=== PATIENT | male | born 1980 | race Caucasian/White ===

== ENCOUNTER 2021-01-17 08:37 | Emergency (ER) | payer SELFPAY ==
--- OUTSIDE RECORDS SUMMARY | 2021-01-17 08:40 | XMS REPORT | Continuity of Care Document ---
:1980 Author Organization [facility] t Address [address] [place] [address] Care Team Providers Name Role Phone Unavailable Unavailable Unavailable Payers Payer Name Policy Type Policy Number Effective Date Expiration Date S ource Problems This patient has no known problems. Allergies, Adverse Reactions, Alerts Allergy Allergy Status Severity Reaction(s) Onset Inactive Treating Comm ents Source Name Type Date Date Clinician No Known DA Active U [facility] 06-02 [facility] s 00:00: d 00 [facility] Medications This patient has no known medications. Procedures This patient has no known procedures. Results Test Description Test Time Test Comments Results Result [facility] e Comments - CT ABD PELVIS 2020-06-02 W/O CONT 14:28:00 [place]: St: REG Name: TOM HUSSEIN [facility] Lisa : 1980 Age/S: 40/M [address] Unit: [id number] Loc: [place] [address] Phys: Joel Dawkins NP Acct: [id number] Dis Date: Status: REG ER PHONE #: [phone] Exam Date: 06/02/2020 1412 FAX #: [phone] Reason: right sided abdominal pain EXAMS: CPT CODE: [id number] CT ABD PELVIS W/O CONT 64255 EXAM: - CT ABD PELVIS W/O CONT LOCATION: C3 HISTORY: 40 years -old Male with right sided abdominal pain TECHNIQUE: Contrast - No IV contrast was given. No oral contrast was given Noncontrast phase - abdomen and pelvis including all of kidneys Reconstructions - coronal and sagittal planes This exam was performed according to our departmental dose-optimization program, which includes automated exposure control, adjustment of the mA and/or kV according to patient size and/or use of iterative reconstruction technique COMPARISON: None FINDINGS: Statements: Lack of intravenous contrast compromises evaluation of abdominopelvic organs and vasculature. Lack of oral contrast compromises evaluation of bowel. Thoracic: Included images of the lower chest demonstrate no abnormalities. Hepatobiliary: The liver is normal without focal lesion. The gallbladder is normal. No biliary dilation. Pancreas: Normal. Spleen: Normal. Adrenals: Normal. Genitourinary: Nonobstructive stones are identified in both kidneys measuring up to 4 mm. 2. 3 mm stones are identified in the proximal right ureter with moderate hydronephrosis. Evaluation of the bladder is limited, but no obvious bladder abnormality is present. Gastrointestinal: Focal diverticulitis involving the proximal aspect of the transverse colon. No adjacent fluid collections. The appendix is not visualized. PAGE 1 Signed Report (CONTINUED) [place]: St: REG Name: TOM HUSSEIN [facility] [place] : 1980 Age/S: 40/M [address] Unit: [id number] Loc: [place] [address] Phys: Joel Dawkins NP Acct: [id number] Dis Date: Status: REG ER PHONE #: [phone] Exam Date: 06/02/2020 1412 FAX #: [phone] Reason: right sided abdominal pain EXAMS: CPT CODE: [id number] CT ABD PELVIS W/O CONT 98254 <Continued> Vascular: The aorta is grossly normal in appearance. Lymphatics: No enlarged lymph nodes by CT size criteria. Bones/Soft Tissues: No acute osseous findings. No ventral hernias. Peritoneum/Other: No extraluminal air. No extraluminal fluid. IMPRESSION: 1. Focal uncomplicated diverticulitis involving the proximal transverse colon. No adjacent fluid collections. 2. 2 obstructive stones in the proximal right ureter with moderate hydronephrosis. 3. Nonobstructive stones in both kidneys measuring up to 4 minutes. at 1428 Reported and signed by: Merari CERVANTES, Nickolas CC: Technologist: JOSE LUIS STONE Trnscrd Dt/Tm: 06/02/2020 (9160) [email or web address] Orig Print D/T: S: 06/02/2020 (2012 PAGE 2 Signed Report URINALYSIS COMPLETE 2020-06-02 14:11:00 Test Item Value Reference Range Interpretation Comme nts UA COLOR (test code = COLU) Yellow Yellow UA APPEARANCE (test code = APPU) Clear Clear UA GLUCOSE DIPSTICK (test code = DGLUU) Negative Negative UA BILIRUBIN DIPSTICK (test code = BILU) Negative Negative UA KETONE DIPSTICK (test code = KETU) Negative mg/dL Negative UA SPECIFIC GRAVITY (test code = SGU) 1.017 <1.030 UA BLOOD DIPSTICK (test code = JEMIMA) 1+ Negative A UA PH DIPSTICK (test code = PERICO) 5.0 5.0-8.0 UA PROTEIN DIPSTICK (test code = PROU) NEGATIVE mg/dL Negative UA UROBILINOGEN DIPSTICK (test code = URO) Negative mg/dL Negative UA NITRITE DIPSTICK (test code = MALACHI) Negative Negative UA LEUKOCYTE ESTERASE DIPSTICK (test code = LEUU) NEGATIVE Nega tive UA WBC (test code = WBCU) 0-3 /HPF <4-5 UA RBC (test code = RBCU) 0-3 /HPF <4-5 UA BACTERIA (test code = BACU) None /HPF None-Rare UA SQUAMOUS CELLS (test code = SQU) 0-5 (RARE) /HPF 0-5 (RARE) UA MUCUS (test code = MUCU) Rare /LPF <Rare - US ABDOMEN [id number] 14:11:00 [place]: St: REG Name: TOM HUSSEIN [facility] Lisa : 1980 Age/S: 40/M [address] Unit#: [id number] Loc: [place] [address] Phys: Joel Dawkins NP Acct: [id number] Dis Date: Status: REG ER PHONE #: [phone] Exam Date: 06/02/2020 3822 FAX #: [phone] Reason: ruq pain EXAMS: CPT CODE: [id number] US ABDOMEN LTD 44579 EXAM: Ultrasound gallbladder INDICATION: ruq pain, LOCATION: [place] [address] COMPARISON: NoneTECHNIQUE: Real time ultrasonography was conducted at the right upper quadrant. Multiple static images were submitted for evaluation. DISCUSSION: The liver is normal in echogenicity . There is no masses or cysts. The liver size is 13.1 cm . Normal antegrade flow is noted. The gallbladder is normally distended. cm There are no gallstones. There is no pericholecystic fluid. The gallbladder wall is 1 mm, within normal limits The common bile duct measure 4 mm. There is no biliary ductal dilatation. . The pancreas is grossly unremarkable. The renal size is 10.3 x 5 x 5.4 cm. Right renal cortex measure up to 1.43 cm. There is presence of hydronephrosis seen. There is presence of 10 mm calcification reside within the proximal ureter. Aorta and inferior cava are unremarkable. No free fluid in the abdomen. IMPRESSION: 1. Mild to moderate right hydronephrosis secondary to 10 mm ureteral stone at the proximal aspect. PAGE 1 Signed Report (CONTINUED) [place]: St: REG Name: JACQUELIN HUSSEIN : 1980 Age/S: 40/M [address] Unit #: [id number] Loc: [place] [address] Phys: Joel Dawkins METAL MIXER Acct: [id number] Dis Date: Status: REG ER PHONE #: [phone] Exam Date: 06/02/2020 1356 FAX #: [phone] Reason: ruq pain EXAMS: CPT CODE: [id number] US ABDOMEN LTD 63816 <Continued> at 1411 Reported and signed by: Adama Chiang M.D. CC: Technologist: Odell Beverly RDDE Trnscrd Date/Time/By: 06/02/2020 (1411) : By: Malick PAGE 2 Signed Report [place]: St: REG Name: TOM HUSSEIN : 1980 Age/S: 40/M [address] Unit #: [id number] Loc: [place] [address] Phys: Joel Dawkins METAL MIXER Acct: [id number] Dis Date: Status: REG ER PHONE #: [phone] Exam Date: 06/02/2020 0859 FAX #: [phone] Reason: ruq pain EXAMS: CPT CODE: [id number] US ABDOMEN LTD 32915 <Continued> Orig Print D/T: S: 06/02/2020 (8122) PAGE 3 Signed ReportCOMPREHENSIVE METABOLIC [id number] 13:53:00 Test Item Value Reference Range Interpretation Comments SODIUM (test code = 138 mmol/L 137-145 N NA) POTASSIUM (test code 3.9 mmol/L 3.4-5.0 N = K) CHLORIDE (test code 103 mmol/L 98-107 N = CL) CARBON DIOXIDE (test 24 mmol/L 22-30 N code = CO2) GLUCOSE (test code = 96 mg/dL 74-106 N GLU) BLOOD UREA NITROGEN 16 mg/dL 9-20 N (test code = BUN) GLOMERULAR 72 >60 The estimated FILTRATION RATE glomerular f iltration (test code = GFR) rate is co mputed usingpatient ra ce, age (>18), sex, and serum creatinine. If anyof the needed data elements are mi ssing the Laboratory cannot compute an alva mation of the glomerul ar filtration rate . CREATININE (test 1.2 mg/dL 0.7-1.3 N code = CREAT) TOTAL PROTEIN (test 8.2 g/dL 6.3-8.2 N code = PROT) ALBUMIN (test code = 5.0 g/dL 3.5-5.0 N ALB) CALCIUM (test code = 9.7 mg/dL 8.4-10.2 N CA) BILIRUBIN TOTAL 0.8 mg/dL 0.2-1.3 N "A positive bias may (test code = BILT) occur for patients taking Eltrombo pag(a bone marrow sti mulant used to treat thrombocytopeni a andaplastic ane manjit)." BILIRUBIN CONJUGATED 0 mg/dL 0-0.3 N "A posi tive bias may (test code = BILCON) occur f or patients taking Eltrombo pag(a bone marrow sti mulant used to treat thrombocytopeni a andaplastic ane manjit)." C ONJUGATE D BILIRUBIN IS THE REPLACEMENT ASS AY FOR DIRECTBILIRUBIN . BILIRUBIN 0.5 mg/dL 0-1.1 N UNCONJUGATED (test code = BILUNC) SGOT/AST (test code 35 U/L 15-46 N = AST) SGPT/ALT (test code U/L 0-34 = ALT) ALKALINE PHOSPHATASE 117 U/L 38-126 N (test code = ALKP) [id number] 13:53:00 Test Item Value Reference Range Interpretation Comments LIPASE (test code = LIP) U/L 23-300 COMPREHENSIVE METABOLIC [id number] 13:53:00 Test Item Value Reference Range Interpretation Comments SODIUM (test code = 138 mmol/L 137-145 N NA) POTASSIUM (test code 3.9 mmol/L 3.4-5.0 N = K) CHLORIDE (test code 103 mmol/L 98-107 N = CL) CARBON DIOXIDE (test 24 mmol/L 22-30 N code = CO2) GLUCOSE (test code = 96 mg/dL 74-106 N GLU) BLOOD UREA NITROGEN 16 mg/dL 9-20 N (test code = BUN) GLOMERULAR 72 >60 The estimated FILTRATION RATE glomerular f iltration (test code = GFR) rate is co mputed usingpatient ra ce, age (>18), sex, and serum creatinine. If anyof the needed data elements are mi ssing the Laboratory cannot compute an alva mation of the glomerul ar filtration rate . CREATININE (test 1.2 mg/dL 0.7-1.3 N code = CREAT) TOTAL PROTEIN (test 8.2 g/dL 6.3-8.2 N code = PROT) ALBUMIN (test code = 5.0 g/dL 3.5-5.0 N ALB) CALCIUM (test code = 9.7 mg/dL 8.4-10.2 N CA) BILIRUBIN TOTAL 0.8 mg/dL 0.2-1.3 N "A positive bias may (test code = BILT) occur for patients taking Eltrombo pag(a bone marrow sti mulant used to treat thrombocytopeni a andaplastic ane manjit)." BILIRUBIN CONJUGATED 0 mg/dL 0-0.3 N "A posi tive bias may (test code = BILCON) occur f or patients taking Eltrombo pag(a bone marrow sti mulant used to treat thrombocytopeni a andaplastic ane manjit)." C ONJUGATE D BILIRUBIN IS THE REPLACEMENT ASS AY FOR DIRECTBILIRUBIN . BILIRUBIN 0.5 mg/dL 0-1.1 N UNCONJUGATED (test code = BILUNC) SGOT/AST (test code 35 U/L 15-46 N = AST) SGPT/ALT (test code 53 U/L 0-34 H = ALT) ALKALINE PHOSPHATASE 117 U/L 38-126 N (test code = ALKP) [id number] 13:53:00 Test Item Value Reference Range Interpretation Comments LIPASE (test code = LIP) 96 U/L 23-300 N CBC W/AUTO [id number] 13:41:00 Test Item Value Reference Range Interpretation Comments WHITE BLOOD CELL (test code = 14.5 x10 3/uL 5.0-12.0 H WBC) RED BLOOD CELL (test code = 4.81 x10 6/uL 4.70-6.10 N RBC) HEMOGLOBIN (test code = HGB) 15.0 g/dL 14.0-18.0 N HEMATOCRIT (test code = HCT) 44.1 % 37.0-49.0 N MEAN CELL VOLUME (test code = 92 fL 80-94 N MCV) MEAN CELL HGB (test code = 31.2 pg 27-31 H MCH) MEAN CELL HGB CONCENTRATION 34.0 g/dL 33-37 N (test code = MCHC) RED CELL DISTRIBUTION WIDTH 12.1 % 11.5-15.5 N (test code = RDW) PLATELET COUNT (test code = 370 x10 3/uL 130-400 N PLT) MEAN PLATELET VOLUME (test 9.7 fL 9.4-16.4 N code = MPV) NEUTROPHIL % (test code = NT%) 78.9 % 43-65 H IMMATURE GRANULOCYTE % (test 0.4 % 0.0-2.0 N code = IG%) LYMPHOCYTE % (test code = LY%) 11.1 % 20.5-45.5 L MONOCYTE % (test code = MO%) 7.5 % 5.5-11.7 N EOSINOPHIL % (test code = EO%) 1.7 % 0.9-2.9 N BASOPHIL % (test code = BA%) 0.4 % 0.2-1.0 N NUCLEATED RBC % (test code = 0.0 % 0-1.0 N NRBC%) NEUTROPHIL # (test code = NT#) 11.43 x10 3/uL 2.2-4.8 H IMMATURE GRANULOCYTE # (test 0.06 x10 3/uL 0-0.03 H code = IG#) LYMPHOCYTE # (test code = LY#) 1.61 x10 3/uL 1.3-2.9 N MONOCYTE # (test code = MO#) 1.08 x10 3/uL 0.3-0.8 H EOSINOPHIL # (test code = EO#) 0.25 x10 3/uL 0.0-0.2 H BASOPHIL # (test code = BA#) 0.06 x10 3/uL 0.0-0.1 N
--- NOTE | 2021-01-17 10:24 | RAD REPORT ---
EXAM DESCRIPTION: RAD - Elbow Left 3 View - 01/17/2021 10:18 am CLINICAL HISTORY: Left elbow pain status post trauma FINDINGS: No fracture or dislocation is seen. No bone or joint abnormality noted
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
[2021-01-17 21:11] VITALS: BP 142/101; O2SAT 100
[2021-01-17 21:27] VITALS: TEMP 98.6
== END 2021-01-17 11:11 | disposition home or self-care (01) ==
LOC: ER 08:37
DX: S53.442A Ulnar collateral ligament sprain of left elbow, initial encounter (principal); X50.0XXA Overexertion from strenuous movement or load, initial encounter; Y93.89 Activity, other specified; Y92.89 Other specified places as the place of occurrence of the external cause; Y99.8 Other external cause status
CPT/HCPCS: 99283

== ENCOUNTER 2021-10-27 17:52 | Observation (INO) | payer SELFPAY ==
--- OUTSIDE RECORDS SUMMARY | 2021-10-27 17:55 | XMS REPORT | Continuity of Care Document ---
:[address] [facility] t Address [address] [place] [address] Care Team Providers Name Role Phone SISSON_C Attending Clinician Unavailable Dale Attending Clinician [phone] Mehta_S Attending Clinician Unavailable Raju_P Attending Clinician Unavailable Physician, Primary or Family Admitting Clinician Unavailabl e SISSON_C Admitting Clinician Unavailable Mehta_S Admitting Clinician Unavailable Raju_P Admitting Clinician Unavailable Payers Payer Name Policy Type Policy Number Effective Date Expiration Date S ource Problems This patient has no known problems. Allergies, Adverse Reactions, Alerts Allergy Allergy Status Severity Reaction(s) Onset Inactive Treating Comm ents Source Name Type Date Date Clinician No Known DA Active U 2020-0 [facility]02 [facility] 00:00: d 00 [facility] No Known DA Active U 2020-0 [facility] All[facility]ie 06-02 [facility] 00:00: d 00 [facility] Medications This patient has no known medications. Procedures This patient has no known procedures. Encounters Start End Encounter Admission Attending Care Care Encounter Source Date/Time Date/Time Type Type Clinicians Facility Department ID 2020-10-18 Inpatient HCAKW XUAN [id number] [facility] 09:41:00 [id number] [facility] 2020-06-02 Inpatient HCAKW XUAN [id number] [facility] 12:56:00 [id number] [facility] 2021-10-25 2021-10-25 Outpatient SISSON_C [facility] 2021 [place] 10:58:00 10:58:00 [id number] 2021-10-25 2021-10-25 [facility] [id number] 00:00:00 00:00:00 Emily [id number] 2021-10-23 2021-10-23 Outpatient DAYO [facility] 2021 [place] 03:19:00 03:19:00 0105 [facility] 2021-06-13 2021-06-13 Outpatient Mehta_S [facility] U [id number]- [place] 10:39:00 10:39:00 [id number] 2021-06-12 2021-06-12 Outpatient Mehta_S [facility] HMU [id number]- [place] 10:22:00 10:22:00 [id number] [facility] 2020-01-23 2020-01-23 Outpatient Raju_P [facility]G [id number] [place] 05:14:00 05:14:00 0406 [facility] Results Test Description Test Time Test Comments Results Result [facility] e Comments - CT ABD PELVIS 2020-06-02 W/O CONT 14:28:00 [place]: St: REG Name: TOM HUSSEIN [facility] : 1980 Age/S: 40/M [address] Unit: [id number] Loc: [place] [address] Phys: Joel Dawkins NP Acct: [id number] Dis Date: Status: REG ER PHONE #: [phone] Exam Date: 06/02/2020 1412 FAX #: [phone] Reason: right sided abdominal pain EXAMS: CPT CODE: [id number] CT ABD PELVIS W/O CONT 74291 EXAM: - CT ABD PELVIS W/O CONT [...] not visualized. PAGE 1 Signed Report (CONTINUED) [place]: St: REG Name: TOM HUSSEIN [facility] : 1980 Age/S: 40/M [address] Unit: [id number] Loc: [place] [address] Phys: Joel Dawkins NP Acct: [id number] Dis Date: Status: REG ER PHONE #: [phone] Exam Date: 06/02/2020 1412 FAX #: [phone] Reason: right sided abdominal pain EXAMS: CPT CODE: [id number] CT ABD PELVIS W/O CONT 07178 <Continued> Vascular: The aorta is grossly normal [...] minutes. at 1428 Reported and signed by: Nickolas Gage MD CC: Technologist: JOSE LUIS STONE Trnscrd Dt/Tm: 06/02/2020 (2601) t.[email or web address] Orig Print D/T: S: 06/02/2020 (1672 PAGE 2 Signed Report URINALYSIS COMPLETE 2020-06-02 [...] MUCU) Rare /LPF <Rare - US ABDOMEN [id number] 14:11:00 [place]: St: REG Name: TOM HUSSEIN : 1980 Age/S: 40/M [address] Unit#: [id number] Loc: [place] [address] Phys: Joel Dawkins NP Acct: [id number] Dis Date: Status: REG ER PHONE #: [phone] Exam Date: 06/02/2020 5345 FAX #: [phone] Reason: ruq pain EXAMS: CPT CODE: [id number] ABDOMEN LTD 82585 EXAM: Ultrasound gallbladder INDICATION: ruq pain, LOCATION: [place] [address] COMPARISON: NoneTECHNIQUE: Real time ultrasonography was conducted [...] proximal aspect. PAGE 1 Signed Report (CONTINUED) [place]: St: REG Name: JACQUELIN HUSSEIN : 1980 Age/S: 40/M [address] Unit #: [id number] Loc: [place] [address] Phys: Joel Dawkins REGULATOR PIN INSERTER Acct: [id number] Dis Date: Status: REG ER PHONE #: [phone] Exam Date: 06/02/2020 3092 FAX #: [phone] Reason: ruq pain EXAMS: CPT CODE: [id number] US ABDOMEN LTD 32922 <Continued> at 1411 Reported and signed by: Adama Chiang M.D. CC: Technologist: Odell Beverly RDMS Trnscrd Date/Time/By: 06/02/2020 (1411) : By: Malick PAGE 2 Signed Report [place]: St: REG Name: TOM HUSSEIN : 1980 Age/S: 40/M [address] Unit #: [id number] Loc: [place] [address] Phys: Joel Dawkins REGULATOR PIN INSERTER Acct: [id number] Dis Date: Status: REG ER PHONE #: [phone] Exam Date: 06/02/2020 3391 FAX #: [phone] Reason: ruq pain EXAMS: CPT CODE: [id number] US ABDOMEN LTD 03013 <Continued> Orig Print D/T: S: 06/02/2020 (8244) PAGE 3 Signed ReportCOMPREHENSIVE METABOLIC [id number] 13:53:00 Test Item Value Reference Range Interpretation [...] U/L 38-126 N (test code = ALKP) [id number] 13:53:00 Test Item Value Reference Range Interpretation Comments LIPASE (test code = LIP) U/L 23-300 COMPREHENSIVE METABOLIC [id number] 13:53:00 Test Item Value Reference Range Interpretation [...] U/L 38-126 N (test code = ALKP) [id number] 13:53:00 Test Item Value Reference Range Interpretation Comments LIPASE (test code = LIP) 96 U/L 23-300 N CBC W/AUTO [id number] 13:41:00 Test Item Value Reference Range Interpretation [...]
[2021-10-27 18:40] LABS: Absolute Lymphocytes (CBC) 2.4 K/uL (0.7-4.9); Hematocrit 43.6 % (39.6-49.0); Lymphocytes % 26.9 % (15.3-44.8); MPV 7.7 fL (7.6-11.3); Protime INR 0.95; RBC Red Blood Cell Count 4.77 M/uL (4.33-5.43)
[2021-10-27 19:01] LABS: ALT/SGPT 87 U/L (12-78); AST/SGOT 38 U/L (15-37); Albumin 3.7 g/dL (3.4-5.0); Alkaline Phosphatase 69 U/L (45-117); BUN Blood Urea Nitrogen 15 mg/dL (7-18); Bicarbonate 23 mmol/L (21-32); Bilirubin Direct < 0.1 mg/dL (0-0.2); Bilirubin Total 0.2 mg/dL (0.2-1.0); Glucose Level 95 mg/dL (74-106); Magnesium 2.3 mg/dL (1.8-2.4); NT PRO-BNP 63 pg/mL (<125); Potassium 4.3 mmol/L (3.5-5.1); Protein, Total 7.5 g/dL (6.4-8.2); Sodium Level 138 mmol/L (136-145); Troponin (Emerg Dept Use Only) < 0.02 ng/mL (0.0-0.045)
--- NOTE | 2021-10-27 19:55 | ER ---
Nurse's Notes [facility] Name: Lobo Valerio Age: 41 yrs Sex: Male : 1980 Arrival Date: 10/27/2021 Time: 17:52 Bed 5 Private MD: Diagnosis: Chest pain, unspecified Presentation: 10/27 18:07 Chief complaint: Patient states: Squeezing and pulling chest pain that started 2-3 ww hours prior to arrival. Took 2 nitros. Recently discharged for Afib. Coronavirus screen: Vaccine status: Patient reports being unvaccinated. Client denies travel out of the [place] in the last 14 days. Ebola Screen: Patient negative for fever greater than or equal to 101.5 degrees Fahrenheit, and additional compatible Ebola Virus Disease symptoms Patient denies exposure to infectious person. Initial Sepsis Screen: Does the patient meet any 2 criteria? No. Patient's initial sepsis screen is negative. Does the patient have a suspected source of infection? No. Patient's initial sepsis screen is negative. Risk Assessment: Do you want to hurt yourself or someone else? Patient reports no desire to harm self or others. Onset of symptoms was October 27, 2021. 18:07 Method Of Arrival: Ambulatory ww 18:07 Acuity: NAOMI 3 ww Triage Assessment: 18:09 General: Appears in no apparent distress. Behavior is calm, cooperative, appropriate ww for age. Pain: Complains of pain in left breast. Pain: Pain radiates to left arm. EENT: No deficits noted. No signs and/or symptoms were reported regarding the EENT system. Neuro: No deficits noted. Level of Consciousness is awake, alert, obeys commands, Oriented to person, place, time, situation. Cardiovascular: Reports chest pain, Rhythm is regular Chest pain is described as diffuse, quality is squeezing, radiates to left arm(s). Respiratory: No deficits noted. Reports shortness of breath Airway is patent Respiratory effort is even, unlabored, Respiratory pattern is regular, symmetrical. GI: No deficits noted. No signs and/or symptoms were reported involving the gastrointestinal system. GI: Reports diarrhea. : No deficits noted. No signs and/or symptoms were reported regarding the genitourinary system. Derm: No deficits noted. No signs and/or symptoms reported regarding the dermatologic system. Musculoskeletal: No deficits noted. Historical: - Allergies: 18:09 No Known Allergies; ww - Home Meds: 18:09 clonazepam 0.5 mg Oral tab 1 tab 2 times per day [Active]; lisinopril 20 mg Oral tab 1 ww tab once daily [Active]; Toprol XL 100 mg Oral Tb24 1 tab once daily [Active]; atorvastatin 20 mg oral tab 1 tab once daily [Active]; - PMHx: 18:09 Anxiety; ADD/ADHD; ww - Immunization history:: Client reports having NOT received the Covid vaccine. Flu vaccine is not up to date. - Social history:: Smoking status: Patient denies any tobacco usage or history of. Screenin:06 Abuse screen: Denies threats or abuse. Denies injuries from another. Nutritional ww screening: No deficits noted. Tuberculosis screening: No symptoms or risk factors identified. Fall Risk None identified. Assessment: 19:30 General:. General: Appears in no apparent distress. Pain:. Pain: Complains of pain in mk chest Pain does not radiate. Pain currently is 5 out of 10 on a pain scale. Quality of pain is described as aching, Pain began gradually, 1 week ago Is continuous, intermittent. Neuro: Level of Consciousness is awake, alert, obeys commands, Oriented to person, place, time, situation. Cardiovascular: Heart tones S1 S2 present Murmur absent Capillary refill < 3 seconds fingers toes JVD is absent Patient's skin is warm and dry. Pulses are 2+ in right radial artery, right dorsalis pedis artery, left radial artery and left dorsalis pedis artery Rhythm is atrial fibrillation. Respiratory: Reports shortness of breath Airway is patent Trachea midline Respiratory effort is even, unlabored, Respiratory pattern is regular, symmetrical, Breath sounds are clear. GI: Abdomen is flat, non-distended, Abd is soft and non tender. : Urine is clear. Derm: Skin is intact, is healthy with good turgor, Skin is dry, Skin is pink, warm \T\ dry. Skin temperature is warm. Musculoskeletal: Circulation, motion, and sensation intact. Capillary refill < 3 seconds, fingers. toes. Range of motion: intact in all extremities. 20:30 Reassessment: Patient appears in no apparent distress at this time. Patient and/or family updated on plan of care and expected duration. Pain level reassessed. Patient is alert, oriented x 3, equal unlabored respirations, skin warm/dry/pink. Patient states feeling better. 21:30 Reassessment: Patient appears in no apparent distress at this time. Patient and/or family updated on plan of care and expected duration. Pain level reassessed. Patient is alert, oriented x 3, equal unlabored respirations, skin warm/dry/pink. 22:30 Reassessment: Patient appears in no apparent distress at this time. No changes from previously documented assessment. Patient and/or family updated on plan of care and expected duration. Pain level reassessed. Patient is alert, oriented x 3, equal unlabored respirations, skin warm/dry/pink. Vital Signs: 18:07 BP 131 / 81; Pulse 90; Resp 18; Temp 96.7; Pulse Ox 100% on R/A; Weight 96.16 kg; ww Height 5 ft. 10 in. (177.80 cm); Pain 6/10; 19:30 BP 123 / 78; Pulse 90; Resp 18; Pulse Ox 98% ; mk 20:30 BP 119 / 90; Pulse 90; Resp 18; Pulse Ox 98% on R/A; mk 21:30 BP 94 / 54; Pulse 90; Resp 18; Pulse Ox 98% on R/A; mk 22:36 BP 100 / 71; Pulse 85; Resp 18; Pulse Ox 95% on R/A; mk 18:07 Body Mass Index 30.42 (96.16 kg, 177.80 cm) Sharon Coma Score: 19:30 Eye Response: spontaneous(4). Verbal Response: oriented(5). Motor Response: obeys mk commands(6). Total: 15. 20:30 Eye Response: spontaneous(4). Verbal Response: oriented(5). Motor Response: obeys mk commands(6). Total: 15. 21:30 Eye Response: spontaneous(4). Verbal Response: oriented(5). Motor Response: obeys mk commands(6). Total: 15. 22:36 Eye Response: spontaneous(4). Verbal Response: oriented(5). Motor Response: obeys mk commands(6). Total: 15. ED Course: 17:52 Patient arrived in ED. am2 18:06 EKG done, by ED staff. ww 18:09 Triage completed. ww 18:09 Arm band placed on left wrist. ww 19:11 Dao Caruso NP is PHCP. pm1 19:22 Cliff Robert MD is Attending Physician. pm1 19:24 Mariia Rodrigues, RUBIO is Primary Nurse. mk 19:25 Magnesium Sent. mk 19:25 LFT's Sent. mk 19:25 CBC with Diff Sent. mk 19:25 Basic Metabolic Panel Sent. mk 19:30 Flushed left forearm. Patient maintains SpO2 saturation greater than 95% on room air. mk 19:30 Patient has correct armband on for positive identification. Allergy band placed. Fall mk risk band placed. Call light in reach. Side rails up X 1. 19:34 XRAY Chest (1 view) In Process Unspecified. EDMS 19:54 Garett Gusman MD is Hospitalizing Provider. pm1 20:34 SARS-COV-2 RT PCR Sent. cs9 22:30 Patient admitted, IV remains in place. mk 22:36 D-Dimer Sent. 10/28 02:10 No provider procedures requiring assistance completed. 02:12 threat monitoring analyst on. Pulse ox on. NIBP on. mk 07:28 Primary Nurse role handed off by Mariia Rodrigues RN bd 07:30 Alisha Castellanos RN is Primary Nurse. vg1 Administered Medications: 10/27 20:23 Drug: morphine 4 mg Route: IVP; Site: left antecubital; sm5 20:23 Drug: Zofran (Ondansetron) 4 mg Route: IVP; Site: left antecubital; sm5 20:23 Drug: Lovenox (enoxaparin) 1 mg/kg Route: Sub-Q; Site: right upper abdomen; sm5 20:24 Drug: Aspirin 325 mg Route: PO; sm5 Outcome: 19:54 Decision to Hospitalize by Provider. pm1 22:30 Instructed on the need for admit. 10/28 02:12 Admitted to ER Hold. Please see [facility] for further documentation. Condition: stable 10:56 Admitted to Tele accompanied by tech, room 206, with chart, Report called to Joelle BERGERON vg1 10:56 Condition: good 10:56 Instructed on the need for admit. 10:57 Patient left the ED. vg1 Signatures: Dispatcher [employer] EDMS DirJovana almeida Patrick, [employer]ITION[employer]S [employer] pm1 Anat Kendall am2 Alisha Castellanos, RN RN vg1 Irma French cs9 Ilana Ceballos RN RN sm5 Rossi Stoner, RN Mariia Harvey, RUBIO RN mk Corrections: (The following items were deleted from the chart) 10/27 20:30 20:23 CORONAVIRUS+MR.MARIO.BECKAZ drawn and sent. [facility] 22:35 20:30 Reassessment: Patient appears in no apparent distress at this time. No changes mk from previously documented assessment. Patient and/or family updated on plan of care and expected duration. Pain level reassessed. Patient is alert, oriented x 3, equal unlabored respirations, skin warm/dry/pink. mk
--- NOTE | 2021-10-27 19:55 | EDPHYS ---
Physician Documentation [facility] Name: Lobo Valerio Age: 41 yrs Sex: Male : 1980 Arrival Date: 10/27/2021 Time: 17:52 Bed 5 Private MD: ED Physician Cliff Robert HPI: 10/27 19:37 This 41 yrs old Male presents to ER via Ambulatory with complaints of Chest Pain. pm1 19:37 The patient or guardian reports chest pain that is located primarily in the anterior pm1 aspect of left upper chest. The pain radiates to the left arm. 19:37 Associated signs and symptoms: Pertinent positives: diaphoresis, Pertinent negatives: pm1 abdominal pain, dizziness, headache, nausea, shortness of breath, vomiting. The chest pain is described as a pressure, sharp. Duration: The patient or guardian reports a single episode, that is still ongoing. Modifying factors: The symptoms are alleviated by nothing. the symptoms are aggravated by nothing. Severity of pain: in the emergency department the pain is a 2 / 10. The patient has been recently seen by a physician: with similar presenting complaints, Patient was diagnosed with new onset atrial fibrillation last Thursday. Was hospitalized at [facility] and discharged home to follow up with cardiology. Patient was prescribed Eliquis but did not fill it due to the cost and was instructed by PCP to follow up with cardiology prior to starting the medication, Patient presents today with chest pain onset 2-3 hours prior to arrival in the left chest radiating to left arm. Patient took two nitros prior to arrival without any improvement in his pain. Patient reports intermittent chest pain since discharge from [place] and he has been taking nitro every day without any improvement. Historical: - Allergies: 18:09 No Known Allergies; ww - Home Meds: 18:09 clonazepam 0.5 mg Oral tab 1 tab 2 times per day [Active]; lisinopril 20 mg Oral tab 1 ww tab once daily [Active]; Toprol XL 100 mg Oral Tb24 1 tab once daily [Active]; atorvastatin 20 mg oral tab 1 tab once daily [Active]; - PMHx: 18:09 Anxiety; ADD/ADHD; ww - Immunization history:: Client reports having NOT received the Covid vaccine. Flu vaccine is not up to date. - Social history:: Smoking status: Patient denies any tobacco usage or history of. ROS: 19:37 Constitutional: Negative for fever, chills, and weight loss. pm1 19:37 Respiratory: Negative for shortness of breath, cough, wheezing, and pleuritic chest pain, Abdomen/GI: Negative for abdominal pain, nausea, vomiting, diarrhea, and constipation, MS/Extremity: Negative for injury and deformity, Skin: Negative for injury, rash, and discoloration, Neuro: Negative for headache, weakness, numbness, tingling, and seizure. 19:37 Cardiovascular: Positive for chest pain, Negative for edema, palpitations. 19:37 All other systems are negative. Exam: 19:37 Constitutional: This is a well developed, well nourished patient who is awake, alert, pm1 and in no acute distress. Head/Face: Normocephalic, atraumatic. Chest/axilla: Normal chest wall appearance and motion. Nontender with no deformity. No lesions are appreciated. 19:37 Back: No spinal tenderness. No costovertebral tenderness. Full range of motion. Skin: Warm, dry with normal turgor. Normal color with no rashes, no lesions, and no evidence of cellulitis. MS/ Extremity: Pulses equal, no cyanosis. Neurovascular intact. Full, normal range of motion. 19:37 Cardiovascular: Rate: normal, Rhythm: regular, Pulses: no pulse deficits are appreciated, Heart sounds: normal, Edema: is not appreciated. 19:37 Respiratory: Exam negative for acute changes, respiratory distress, shortness of breath. 19:37 Abdomen/GI: Exam negative for acute changes, Inspection: abdomen appears normal, Palpation: abdomen is soft and non-tender, in all quadrants. 19:37 Neuro: Exam negative for acute changes, Orientation: is normal, Mentation: is normal, Motor: is normal, moves all fours. Vital Signs: 18:07 BP 131 / 81; Pulse 90; Resp 18; Temp 96.7; Pulse Ox 100% on R/A; Weight 96.16 kg; ww Height 5 ft. 10 in. (177.80 cm); Pain 6/10; 19:30 BP 123 / 78; Pulse 90; Resp 18; Pulse Ox 98% ; mk 20:30 BP 119 / 90; Pulse 90; Resp 18; Pulse Ox 98% on R/A; mk 21:30 BP 94 / 54; Pulse 90; Resp 18; Pulse Ox 98% on R/A; mk 22:36 BP 100 / 71; Pulse 85; Resp 18; Pulse Ox 95% on R/A; mk 18:07 Body Mass Index 30.42 (96.16 kg, 177.80 cm) Sharon Coma Score: 19:30 Eye Response: spontaneous(4). Verbal Response: oriented(5). Motor Response: obeys mk commands(6). Total: 15. 20:30 Eye Response: spontaneous(4). Verbal Response: oriented(5). Motor Response: obeys mk commands(6). Total: 15. 21:30 Eye Response: spontaneous(4). Verbal Response: oriented(5). Motor Response: obeys mk commands(6). Total: 15. 22:36 Eye Response: spontaneous(4). Verbal Response: oriented(5). Motor Response: obeys mk commands(6). Total: 15. MDM: 19:11 Patient medically screened. pm1 19:37 Data reviewed: vital signs. Data interpreted: Pulse oximetry: on room air is 100 %. pm1 Interpretation: normal. 19:39 Counseling: I had a detailed discussion with the patient and/or guardian regarding: the pm1 historical points, exam findings, and any diagnostic results supporting the discharge/admit diagnosis, lab results, radiology results, the need for further work-up and treatment in the hospital. 19:54 Physician consultation: Deepak Hoang regarding admission, patient's condition, and will pm1 see patient in ED. 10/27 18:16 Order name: Basic Metabolic Panel ww 10/27 18:16 Order name: CBC with Diff ww 10/27 18:16 Order name: LFT's ww 10/27 18:16 Order name: Magnesium ww 10/27 18:16 Order name: NT PRO-BNP; Complete Time: 19:21 ww 10/27 18:16 Order name: PT-INR; Complete Time: 19:21 ww 10/27 18:16 Order name: Troponin (emerg Dept Use Only); Complete Time: 19:21 ww 10/27 18:16 Order name: Basic Metabolic Panel; Complete Time: 19:21 EDAR 10/27 18:16 Order name: CBC with Automated Diff; Complete Time: 19:21 EDAR 10/27 18:16 Order name: Liver (Hepatic) Function; Complete Time: 19:21 EDMS 10/27 18:16 Order name: Magnesium; Complete Time: 19:21 EDMS 10/27 19:34 Order name: D-Dimer pm1 10/27 19:35 Order name: D-Dimer; Complete Time: 20:35 EDMS 10/27 18:16 Order name: XRAY Chest (1 view); Complete Time: 20:15 ww 10/27 18:16 Order name: EKG; Complete Time: 18:17 ww 10/27 18:16 Order name: Cardiac monitoring; Complete Time: 19:25 ww 10/27 20:31 Order name: SARS-COV-2 RT PCR; Complete Time: 21:16 EDMS 10/27 23:44 Order name: Troponin I; Complete Time: 23:52 EDMS 10/28 06:23 Order name: CBC with Automated Diff EDMS 10/28 07:00 Order name: Comprehensive Metabolic Panel EDMS 10/28 07:00 Order name: Troponin I EDMS 10/28 07:00 Order name: Lipid Profile EDMS 10/28 07:00 Order name: T4 Free EDMS 10/28 07:00 Order name: Magnesium EDMS 10/28 07:00 Order name: Thyroid Stimulating Hormone EDMS 10/27 18:16 Order name: EKG - Nurse/Tech; Complete Time: 18:23 ww 10/27 18:16 Order name: IV Saline Lock; Complete Time: 18:23 ww 10/27 18:16 Order name: Labs collected and sent; Complete Time: 18:23 ww 10/27 18:16 Order name: O2 Per Protocol; Complete Time: 19:25 ww 10/27 18:16 Order name: O2 Sat Monitoring; Complete Time: 19:25 ww Administered Medications: 20:23 Drug: morphine 4 mg Route: IVP; Site: left antecubital; sm5 20:23 Drug: Zofran (Ondansetron) 4 mg Route: IVP; Site: left antecubital; sm5 20:23 Drug: Lovenox (enoxaparin) 1 mg/kg Route: Sub-Q; Site: right upper abdomen; sm5 20:24 Drug: Aspirin 325 mg Route: PO; sm5 Disposition Summary: 10/27/21 19:54 Hospitalization Ordered Hospitalization Status: Observation pm1 Provider: Garett Gusman pm1 Condition: Stable pm1 Problem: new pm1 Symptoms: have improved pm1 Bed/Room Type: Standard pm1 Location: Telemetry/MedSurg (observation)(10/28/21 09:42) bd Room Assignment: 206(10/28/21 09:42) bd Diagnosis - Chest pain, unspecified pm1 Forms: - Medication Reconciliation Form pm1 - SBAR form pm1 Addendum: 10/29/2021 12:17 Co-signature as Attending Physician, Cliff Robert MD I agree with the assessment and c hobbs plan of care. Signatures: Dispatcher [employer] EDMS Jovana Deleon Corey, MD MD cha Attema, Lee, COOK DINNER-C COOK DINNER-Cla1 Vicky Castellanos, RN RN cg Dao Caruso, CORE OVEN TENDER CORE OVEN TENDER pm1 Nir Retana oe Ilana Ceballos RN RN sm5 Rossi Stoner RN RN ww Corrections: (The following items were deleted from the chart) 10/27 20:30 19:39 CORONAVIRUS+MR.LAB.BRZ ordered. EDMS EDMS 22:18 19:54 pm1 oe 22:42 22:18 225 oe cg 22:52 19:54 Telemetry/MedSurg (observation) pm1 cg 22:52 22:42 cg cg 10/28 09:42 10/27 22:52 RUST ER HOLD cg bd 10/28 09:42 10/27 22:52 ERHOLD- cg bd
[2021-10-27] MEDS ORDERED: MORPHINE 4 MG/ML SYR ONE (20:01)
[2021-10-27] MEDS ORDERED: ASPIRIN 325 MG TAB ONE (20:02)
[2021-10-27] MEDS ORDERED: ONDANSETRON 4 MG/2 ML VIAL ONE (20:02)
[2021-10-27] MEDS ORDERED: ENOXAPARIN 100 MG/ML SYR SQ ONE (20:02)
--- NOTE | 2021-10-27 20:12 | RAD REPORT ---
EXAM DESCRIPTION: Cristobal Single View10/27/2021 7:34 pm CLINICAL HISTORY: Chest pain COMPARISON: none FINDINGS: The lungs appear clear of acute infiltrate. The heart is normal size IMPRESSION: No acute abnormalities displayed
--- NOTE | 2021-10-27 20:59 | P.HP ---
Certification for Inpatient Patient admitted to: Observation With expected LOS: <2 Midnights Patient will require the following post-hospital care: None Practitioner: I am a practitioner with admitting privileges, knowledge of patient current condition, hospital course, and medical plan of care. Services: Services provided to patient in accordance with Admission requirements found in Title 42 Section 412.3 of the Code of Federal Regulations Patient History Date of Service: 10/27/21 Reason for admission: Chest pain History of Present Illness: 41-year-old male with history of recent bout of atrial fibrillation, hyperlipidemia presents to the emergency department for chest pain. Patient reports that he was recently seen on 10/21/2021 and admitted overnight at [facility] with A. fib RVR, started on metoprolol succinate 100 mg daily as well as Eliquis 5 mg p.o. twice daily in addition to his lisinopril 20 mg daily and atorvastatin 20 mg daily. Patient converted to sinus rhythm after about 12 to 13 hours of being in A. fib and was discharged to follow-up with cardiology on outpatient basis, patient did not have echocardiogram performed at that time. For the past 2 to 3 days patient's been having frequent bouts of chest pain described as sharp and radiating to left arm with some occasional associated diaphoresis. Initial troponin negative EKG sinus rhythm without ST changes. Patient did not feel Eliquis due to cost but has been in sinus rhythm since he was discharged. ED provider wishes to admit under observation for ACS rule out. - Past Medical/Surgical History -: Paroxysmal A. fib -: Hypertension -: Hyperlipidemia -: None Psychosocial/ Personal History: Lives at home with family - Family History Father -: Heart disease Mother -: Cancer - Social History Smoking Status: Never smoker Alcohol use: No CD- Drugs: No Caffeine use: Yes Place of Residence: Home Review of Systems 10-point ROS is otherwise unremarkable Cardiovascular: Chest Pain, Other (Diaphoresis) Physical Examination - Physical Exam General: Alert, In no apparent distress, Oriented x3 HEENT: Atraumatic, PERRLA, Mucous membr. moist/pink, EOMI, Sclerae nonicteric Neck: Supple, 2+ carotid pulse no bruit, No LAD, Without JVD or thyroid abnormality Respiratory: Clear to auscultation bilaterally, Normal air movement Cardiovascular: Regular rate/rhythm, Normal S1 S2 Capillary refill: <2 Seconds Gastrointestinal: Normal bowel sounds, No tenderness Musculoskeletal: No tenderness Integumentary: No rashes Neurological: Normal speech, Normal strength at 5/5 x4 extr, Normal tone, Normal affect Lymphatics: No axilla or inguinal lymphadenopathy - Studies Laboratory Data (last 24 hrs) 10/27/21 18:24: PT 10.9, INR 0.95 10/27/21 18:24: WBC 9.00, Hgb 14.8, Hct 43.6, Plt Count 388 10/27/21 18:24: Sodium 138, Potassium 4.3, BUN 15, Creatinine 1.27, Glucose 95, Magnesium 2.3, Total Bilirubin 0.2, AST 38 H, ALT 87 H, Alkaline Phosphatase 69 Assessment and Plan - Plan Assessment: Chest pain rule out ACS Paroxysmal A. fib currently in sinus rhythm Hypertension Hyperlipidemia Plan: Chest pain rule out ACS: Trend troponins, monitor on telemetry, cardiology consulted continue beta-jose, aspirin, atorvastatin. As needed medication for pain/anxiety. Echo ordered Paroxysmal A. fib currently in sinus rhythm: Patient reports that he was in A. fib for approximately 12 to 13 hours when he went to [facility] on 10/21/2021. Followed up with his primary care doctor as he could not afford the Eliquis and she informed him that he could probably take an aspirin a day for now until he was seen by cardiology to determine if you need to take long-term anticoagulation therapy. Cardiology consulted, appreciate their input in regards to anticoagulation. [id number] score 1, could possibly benefit with daily aspirin. Hypertension: Home medications continued lisinopril 20 mg daily, Toprol succinate 100 mg daily Hyperlipidemia: Atorvastatin 20 mg daily DVT PPX: Lovenox Code status: Full Discharge Plan: Home Plan to discharge in: 24 Hours - Advance Directives Does patient have a Living Will: No Does patient have a Durable POA for Healthcare: No - Code Status/Comfort Care Code Status Assessed: Yes (Full code) Critical Care: No Time Spent Managing Pts Care (In Minutes): 55
[2021-10-27] MEDS ORDERED: ATORVASTATIN 20 MG TAB PO SCH (22:02)
[2021-10-27] MEDS ORDERED: clonazePAM 0.5 MG TAB PO PRN (22:02)
[2021-10-27] MEDS ORDERED: ONDANSETRON 4 MG/2 ML VIAL IV PRN (22:02)
[2021-10-27] MEDS ORDERED: ATORVASTATIN 20 MG TAB ONE (22:58)
[2021-10-27] MEDS ORDERED: MORPHINE 2 MG/ML SYR ONE (22:58)
[2021-10-27] MEDS: MORPHINE 2 MG/ML SYR IV PRN (23:04)
[2021-10-28 02:20] VITALS: BMI 30.4
[2021-10-28] MEDS ORDERED: KETOROLAC 30 MG/ML INJ IV ONE (04:50)
[2021-10-28] MEDS ORDERED: METOPROLOL XL 100 MG TAB PO SCH (06:00)
[2021-10-28 06:22] LABS: Absolute Lymphocytes (CBC) 2.6 K/uL (0.7-4.9); Hematocrit 44.3 % (39.6-49.0); Lymphocytes % 29.2 % (15.3-44.8); MPV 8.1 fL (7.6-11.3); RBC Red Blood Cell Count 4.86 M/uL (4.33-5.43)
[2021-10-28] MEDS ORDERED: METOPROLOL XL 50 MG TAB PO ONE (06:24)
--- NOTE | 2021-10-28 06:43 | P.PN ---
Date of Service: 10/28/21
[2021-10-28 06:51] LABS: ALT/SGPT 82 U/L (12-78); AST/SGOT 41 U/L (15-37); Albumin 3.2 g/dL (3.4-5.0); Alkaline Phosphatase 63 U/L (45-117); BUN Blood Urea Nitrogen 14 mg/dL (7-18); Bicarbonate 23 mmol/L (21-32); Bilirubin Total 0.3 mg/dL (0.2-1.0); Glucose Level 84 mg/dL (74-106); HDL Cholesterol 30 mg/dL (40-60); LDL Cholesterol, Calculated 54 (<130); Magnesium 2.1 mg/dL (1.8-2.4); Protein, Total 6.5 g/dL (6.4-8.2); Sodium Level 138 mmol/L (136-145); Troponin I < 0.02 ng/mL (0.0-0.045)
[2021-10-28] MEDS ORDERED: INFLUENZA VACCINE (for 6+ mo) 0.5 ML DOSE IMVAC ONE (08:00)
[2021-10-28] MEDS ORDERED: MORPHINE 2 MG/ML SYR ONE (08:29)
[2021-10-28] MEDS ORDERED: ASPIRIN EC 81 MG TAB PO ONE (08:29)
[2021-10-28] MEDS ORDERED: ENOXAPARIN 40 MG/0.4 ML SQ ONE (08:30)
[2021-10-28] MEDS ORDERED: lisinopriL 20 MG TAB ONE (08:30)
[2021-10-28] MEDS: MORPHINE 2 MG/ML SYR IV PRN (08:53)
[2021-10-28] MEDS ORDERED: lisinopriL 20 MG TAB PO SCH (09:00)
[2021-10-28] MEDS ORDERED: ENOXAPARIN 40 MG/0.4 ML SQ SCH (09:00)
[2021-10-28] MEDS ORDERED: ASPIRIN EC 81 MG TAB PO SCH (09:00)
[2021-10-28 11:18] VITALS: O2SAT 95
--- NOTE | 2021-10-28 11:53 | CON ---
Date of Consultation: 10/28/2021 Reason For Consultation: Chest pain. History Of Present Illness: Mr. Valerio is 41. Has a positive family history of heart disease. Recen tly, he had atrial fibrillation and was treated with metoprolol and Eliquis in [facility] for 5 days. N o cardiac workup done at that time. Metoprolol and Eliquis were stopped. He was taking lisinopril a nd Lipitor at home. Came in with atypical chest pain, midsternal, sharp, stabbing, going on for a da y or 2, nonexertional, nonradiating. No nausea, vomiting, diaphoresis, PND, orthopnea, pedal edema, palpitation, syncope, fever, or chills. Past Medical History: Negative. Allergies: NONE. Review of Systems: Negative. Social History: Negative. Family History: Positive for heart disease. Physical Examination: Done by Dr. Gusman. Vital signs were stable, afebrile. Otherwise examination was unremarkable. His vital signs were stable. He was in sinus rhythm. Diagnostic Data: Normal. Impression And Plan: 1.Paroxysmal atrial fibrillation. The patient needs to be on metoprolol and aspirin. 2.Atrial fibrillation that has resolved. 3.Chest pain that is atypical, noncardiac in nature. 4.Family history of heart disease. 5.Hypertension. I think the patient needs to have an echocardiogram. He can go home after that. I will make an arrangement for him to have an outpatient MPI. I would discontinue his lisinopril. Co ntinue metoprolol, Lipitor, and aspirin. Case was discussed with Dr. Gusman. ALEX/ROOSEVELT Voice ID: [id number] Report ID: [id number]
[2021-10-28 12:11] VITALS: BP 103/57; TEMP 97.8
--- NOTE | 2021-10-29 07:15 | ECHO ---
HEIGHT: 5 ft 10 in WEIGHT: 212 lb 0 oz DATE OF STUDY: 10/28/[address]: Deepak Hoang NP 2-DIMENSIONAL: YES M.MODE: YES DOPPLER: YES COLOR FLOW: YES TDS: PORTABLE: DEFINITY: BUBBLE STUDY: DIAGNOSIS: CHEST PAIN, RECENT HISTORY OF ATRIAL FIBRILLATION CARDIAC HISTORY: CATHERIZATION: NO SURGERY: NO PROSTHETIC VALVE: NO PACEMAKER: NO MEASUREMENTS (cm) DIASTOLIC (NORMALS) SYSTOLIC (NORMALS) IVSd 1.3 (0.6-1.2) LA Diam 3.2 (1.9-4.0) LVEF 55-60% LVIDd 3.8 (3.5-5.7) LVIDs 2.0 (2.0-3.5) %FS 47% LVPWd 1.3 (0.6-1.2) Ao Diam 2.9 (2.0-3.7) 2 DIMENSIONAL ASSESSMENT: RIGHT ATRIUM: NORMAL LEFT ATRIUM: NORMAL RIGHT VENTRICLE: NORMAL LEFT VENTRICLE: NORMAL TRICUSPID VALVE: NORMAL MITRAL VALVE: NORMAL PULMONIC VALVE: NORMAL AORTIC VALVE: NORMAL PERICARDIAL EFFUSION: NONE AORTIC ROOT: NORMAL LEFT VENTRICULAR WALL MOTION: NORMAL DOPPLER/COLOR FLOW: NORMAL COMMENTS: NORMAL LEFT VENTRICULAR EJECTION FRACTION, 55-60%. NORMAL WALL MOTION. NORMAL DIASTOLIC DYSFUNCTION. TECHNOLOGIST: ALMA DELIA SHEN
== END 2021-10-28 15:08 | disposition home or self-care (01) ==
LOC: ER 17:52 → ERHOLD 20:51 → 2ND 10-28 10:48
PROVIDERS: ADMIT Hospitalist; ATTEND Hospitalist
DX: R07.89 Other chest pain (principal); I48.0 Paroxysmal atrial fibrillation; I10 Essential (primary) hypertension; E78.5 Hyperlipidemia, unspecified; F90.9 Attention-deficit hyperactivity disorder, unspecified type; Z20.822 Contact with and (suspected) exposure to COVID-19; Z82.49 Family history of ischemic heart disease and other diseases of the circulatory system; Z80.9 Family history of malignant neoplasm, unspecified
CPT/HCPCS: 36415; 71045; 80048; 80053; 80061; 80076; 83735; 83880; 84439; 84443; 84484; 85025; 85379; 85610; 93005; 93306; 96372; 96374; 96375; 99285; G0378; J1650; J2270; J2405; U0003

== ENCOUNTER 2022-08-06 12:36 | Emergency (ER) | payer SELFPAY ==
--- OUTSIDE RECORDS SUMMARY | 2022-08-06 12:39 | XMS REPORT | Continuity of Care Document ---
:1980 Author Organization [facility] t Address [facility] [place] [address] Care Team Providers Name Role Phone CHRIS FLOR Primary Care Physician Unavailable DR CHRIS FLOR Attending Clinician Unavailable [id number] Attending Clinician Unavailable [id number] Attending Clinician Unavailable DALE_Camilo Attending Clinician Unavailable Emily Hunter Attending Clinician [phone] Opal Attending Clinician Unavailable Mary_Maddy Attending Clinician Unavailable DR CHRIS FLOR Admitting Clinician Unavailable Physician, No Primary or Family Admitting Clinician Unavaila ble DALE_Camilo Admitting Clinician Unavailable Mehta_S Admitting Clinician Unavailable Raju_P Admitting Clinician Unavailable Payers Payer Name Policy Type Policy Number Effective Date Expiration Date Madi john [facility] - [id number] [facility] [id number] 2021 ([facility] 00:00:00 Problems Condition Condition Condition Status Onset Resolution Last Treating Co mments Source Name Details Category Date Date Treatment Clinician Date Hyperchole Hyperchole Problem Active S rae sterolemia sterolemia 1-07 [facility] Anxiety Anxiety Problem Active [place] 1-07 [facility] 00:[facility]: ty [facility] Essential Essential Problem Active Swe mikey hypertensi Hypertensi 1-07 Co m[facility] on on 00:00: ty 00 [facility] Atrial Atrial Problem Active [place] fibrillati Fibrillati -07 Co m[facility]i on on 00:: [facility] Decreased Decreased Problem Active Swe mikey testostero Testostero -07 Co m[facility]i ne level ne Level 00:00: 00 [facility] Allergies, Adverse Reactions, Alerts Allergy Allergy Status Severity Reaction(s) Onset Inactive Treating Comm ents Source Name Type Date Date Clinician No Known DA Active U 2019-0 [facility] All[facility]ie 06-02 [facility] 00:00: d 00 [facility] No Known DA Active U 0 [facility] Allergie 06-02 [facility] 00:00: d [facility] No Known MA Active UNKNOWN [place] Allergie [place] [facility] Social History Smoking Status Start Date Stop Date Source Never Smoker [facility] Medications Ordered Filled Start Stop Current Ordering Indication Dosage Frequency Signature Comments Components Source Medication Medication Date Date Medication? Clinician (SIG) Name Name atorvastati atorvastati No atorvastat [place] n 20 mg n 20 mg in 20 mg Commu ni tablet TAKE tablet TAKE tablet ty ONE (1) ONE (1) TAKE ONE Hospi ta TABLET BY TABLET BY (1) TABLET l MOUTH DAILY MOUTH DAILY BY MOUTH Clinics AT BEDTIME. AT BEDTIME. DAILY AT BEDTIME. dextroamphe dextroamphe No dextroamph [place] tamine-amph tamine-amph etamine-am Communi etamine 20 etamine 20 phetamine ty mg tablet mg tablet 20 mg Hosp simba TAKE ONE TAKE ONE tablet l (1) (1) TAKE ONE Clinics TABLET(S) TABLET(S) (1) BY MOUTH BY MOUTH TABLET(S) TWICE A TWICE A BY MOUTH DAY. DAY. TWICE A DAY. nitroglycer nitroglycer No nitroglyce [place] in 0.4 mg in 0.4 mg rin 0.4 mg Communi sublingual sublingual sublingual ty tablet tablet tablet Hospita Place by Place by Place by l sublingual sublingual sublingual Clinics route. route. route. paroxetine paroxetine No 1 Q1D paroxetine [place] ER 37.5 mg ER 37.5 mg ER 37.5 mg Communi tablet,exte tablet,exte tablet,ext ty nded nded ended Hospita release 24 release 24 release 24 l hr Take 1 hr Take 1 hr Take 1 Clinics tablet tablet tablet every day every day every day by oral by oral by oral route. route. route. testosteron testosteron No testostero [place] e e ne Communi self-prescr self-prescr self-presc ty ibedtaking ibedtaking ribedtakin Hospita 250 mg IM 250 mg IM g 250 mg l Q2W Q2W IM Q2W Clinics zolpidem 10 zolpidem 10 No zolpidem [place] mg tablet mg tablet 10 mg Comm uni TAKE ONE TAKE ONE tablet ty (1) (1) TAKE ONE Hospita TABLET(S) TABLET(S) (1) l BY MOUTH BY MOUTH TABLET(S) Cl inics ONCE A DAY ONCE A DAY BY MOUTH AT BEDTIME AT BEDTIME ONCE A DAY NEEDED. NEEDED. AT BEDTIME NEEDED. Vital Signs Vital Name Observation Time Observation Value Comments Source BP Diastolic 2022-07-22 00:00:00 84 mm[Hg] [facility] Height 2022-07-22 00:00:00 69 [in_i] [facility] BMI (Body Mass 2022-07-22 00:00:00 29.8 kg/m2 [facility] Index) [facility] s BP Systolic 2022-07-22 00:00:00 141 mm[Hg] [facility] Body Weight 2022-07-22 00:00:00 3232 [oz_av] [facility] Procedures This patient has no known procedures. Plan of Care Planned Activity Planned Date Details Comments Source Diagnostic Test 2022-07-22 testosterone, [place] [facility] Pending 00:00:00 free + total, Hospital Clini cs serum [code = testosterone, free + total, serum] Diagnostic Test 2022-07-22 estradiol, serum [facility] Pending 00:00:00 [code = Hospital Clinic s estradiol, serum] Diagnostic Test 2022-07-22 PSA, serum or [place] [facility] Pending 00:00:00 plasma [code = Hospital Clin ics PSA, serum or plasma] Future Appointment 2022-08-22 Emily Hunter [place] [facility] 07:00:00 [facility] [address] [place] [address] Encounters Start End Encounter Admission Attending Care Care Encounter Source Date/Time Date/Time Type Type Clinicians Facility Department ID 2022-07-25 Outpatient BACCHRIS ESCOTOPO ELCAMPO [id number] [id number] El 10:19:29 [id number] [id number] [facility] 2022-07-08 Outpatient CHRIS FLORCAMPO ELCAMPO [id number] [id number] El 09:28:03 [id number] [facility] [id number] [facility] 2022-04-18 Outpatient CHRIS FLORCAMPO ELCAMPO [id number] [id number] El 11:06:06 [id number] [facility] [id number] [facility] 2020-10-18 Inpatient HCAKW XUAN [id number] [facility] 09:41:00 16 [facility] 2020-06-02 Inpatient HCAKW XUAN [id number] [facility] 12:56:00 28 [facility] 2022-08-06 2022-08-06 Outpatient SISSON_C [facility] 2021 [place] 00:00:00 00:00:00 1019 [facility] 2022-07-28 2022-07-28 Outpatient CHRIS DOTYCAMPO [facility] [id number] El 10:20:00 12:27:00 [id number] Cam po [id number] [facility] 2022-07-22 2022-07-22 Outpatient [facility]SON[facility]C [facility] [id number] [place] 00:00:00 00:00:00 1004 Commun i ty Hospita l [facility] 2022-07-22 2022-07-22 [facility] [place] 00:00:00 00:00:00 O[facility] [place] Comm uni MSN, B2B ACCOUNT EXECUTIVE, Hospital - ty [employer]: [address] [place] [facility] [address], [address], [place], [place] MSN, [employer] [id number] , Ph. 2022-04-18 2022-04-18 Outpatient CHRIS DOTY [facility] [id number] El 11:06:00 17:55:00 [id number] [facility] [id number] [facility] 2022-03-05 2022-03-05 Outpatient [facility]C [facility] [id number] [place] 00:00:00 00:00:00 [id number] [facility] i [facility] Clinics 2022-03-05 2022-03-05 Outpatient Dale [facility] [id number] e-d 00:00:00 00:00:00 Emily [id number] 2021-12-24 2021-12-24 Outpatient [facility]SON[facility] [id number] [place] 09:59:00 09:59:00 0308 Commun i ty [facility]osp[facility] Clinics 2021-10-25 2021-10-25 Outpatient [facility] [id number] [place] 10:58:00 10:58:00 0107 Commun i ty [facility]ospita [facility] Clinics 2021-10-25 2021-10-25 Outpatient Dale [facility] [id number] 00:00:00 00:00:00 Emily [id number] 2021-10-23 2021-10-23 Outpatient SISSON[facility]C [facility] [id number] [place] 03:19:00 03:19:00 0105 Commun i ty Hospita [facility] Clinics 2021-06-13 2021-06-13 Outpatient Mehta_S [facility] [id number] [place] 10:39:00 10:39:00 [id number] [facility] 2021-06-12 2021-06-12 Outpatient Mehta_S [facility] [id number] [place] 10:22:00 10:22:00 [id number] [facility] 2020-01-23 2020-01-23 Outpatient Raju_P [facility] [id number] [place] 05:14:00 05:14:00 [id number] [facility] Results Test Description Test Time Test Comments Results Result [facility] lawrence Comments - CT ABD PELVIS 2020-06-02 [place]: St: W/O CONT 14:28:00 REG Name: TOM HUSSEIN [facility] Lisa : 1980 Age/S: 40/M [address] Unit: [id number] Loc: [place] [address] Phys: Joel Dawkins NP Acct: [id number] Dis Date: Status: REG ER PHONE #: [phone] Exam Date: 06/02/2020 1412 FAX #: [phone] Reason: right sided abdominal pain EXAMS: CPT CODE: [id number] CT ABD PELVIS W/O CONT 59009 EXAM: - CT ABD PELVIS W/O CONT [...] not visualized. PAGE 1 Signed Report (CONTINUED) [place]: St: REG Name: TOM HUSSEIN [facility] : 1980 Age/S: 40/M [address] Unit: [id number] Loc: [place] [address] Phys: Joel Dawkins NP Acct: [id number] Dis Date: Status: REG ER PHONE #: [phone] Exam Date: 06/02/2020 1412 FAX #: [phone] Reason: right sided abdominal pain EXAMS: CPT CODE: [id number] CT ABD PELVIS W/O CONT 54984 (Continued) Vascular: The aorta is grossly normal in [...] kidneys measuring up to 4 minutes. at 142 Reported and signed by: Nickolas Gage MD CC: Technologist: JOSE LUIS STONE Trnscrd Dt/Tm: 06/02/2020 (1238) AlconHV2 Orig Print D/T: S: 06/02/2020 (6601 PAGE 2 Signed Report URINALYSIS COMPLETE 2020-06-02 [...] MUCU) Rare /LPF <Rare - US ABDOMEN [id number] 14:11:00 [place]: St: REG -- Name: TOM HUSSEIN [facility] : 1980 Age/S: 40/M [address] Unit #: [id number] Loc: [place] [address] Phys: Joel Dawkins NP Acct: [id number] Dis Date: Status: REG ER PHONE #: [phone] Exam Date: 06/02/2020 5302 FAX #: [phone] Reason: ruq pain EXAMS: CPT CODE: [id number] US ABDOMEN LTD 95007 EXAM: Ultrasound gallbladder INDICATION: ruq pain, LOCATION: [facility] - C3 COMPARISON: None TECHNIQUE: Real time ultrasonography was conducted at the [...] proximal aspect. PAGE 1 Signed Report (CONTINUED) [place]: St: REG Name: TOM HUSSEIN [facility] : 1980 Age/S: 40/M [address] Unit #: [id number] Loc: [place] [address] Phys: Joel Dawkins NP Acct: [id number] Dis Date: Status: REG ER PHONE #: [phone] Exam Date: 06/02/2020 3904 FAX #: Reason: ruq pain EXAMS: CPT CODE: [id number] ABDOMEN LTD 80341 (Continued) at 1411 Reported and signed by: Adama Chiang M.D. CC: Technologist: Odell Beverly RDMS Trnscrd Date/Time/By: 06/02/2020 (1411) : By: Malick PAGE 2 Signed Report [place]: St: REG -- Name: TOM HUSSEIN : 1980 Age/S: 40/M [address] Unit #: [id number] Loc: [place] [address] Phys: Joel Dawkins NP Acct: [id number] Dis Date: Status: REG ER PHONE #: [phone] Exam Date: 06/02/2020 2966 FAX #: [phone] Reason: ruq pain EXAMS: CPT CODE: [id number] US ABDOMEN LTD 34668 (Continued) Orig Print D/T: S: 06/02/2020 (1414) PAGE 3 Signed ReportCOMPREHENSIVE METABOLIC [id number] 13:53:00 Test Item Value Reference Range Interpretation [...] U/L 38-126 N (test code = ALKP) [id number] 13:53:00 Test Item Value Reference Range Interpretation Comments LIPASE (test code = LIP) U/L 23-300 COMPREHENSIVE METABOLIC [id number] 13:53:00 Test Item Value Reference Range Interpretation [...] U/L 38-126 N (test code = ALKP) [id number] 13:53:00 Test Item Value Reference Range Interpretation Comments LIPASE (test code = LIP) 96 U/L 23-300 N CBC W/AUTO [id number] 13:41:00 Test Item Value Reference Range Interpretation [...]
--- NOTE | 2022-08-06 13:34 | RAD REPORT ---
EXAM DESCRIPTION: CT - C Spine Wo Con - 08/06/2022 1:20 pm CLINICAL HISTORY: Cervical radiculopathy, no red flags Neck injury, neck pain COMPARISON: No comparisons FINDINGS: The cervical vertebral body heights are maintained. Mild disc thinning with posterior oste ophyte lower cervical levels. No evidence of acute cervical spine fracture or subluxation. Prevertebral soft tissues are normal in thickness. IMPRESSION: Negative for acute cervical spine abnormality. Mild lower cervical degenerative changes. If clinical symptomology persists, MRI cervical spine could be obtained for further assessment. All CT scans are performed using dose optimization technique as appropriate and may include automated exposure control or mA/KV adjustment according to patient size.
--- NOTE | 2022-08-06 16:17 | ER ---
Nurse's Notes [facility] Name: Lobo Valerio Age: 42 yrs Sex: Male : 1980 Arrival Date: 08/06/2022 Time: 12:38 Bed IW3 Private MD: Diagnosis: Presentation: 08/06 12:51 Chief complaint: Patient states: Left shoulder/neck pain. Pt reports neck pain for 2-3 ld1 days. Stretching neck this morning - felt a pull and now pain to left shoulder. Coronavirus screen: At this time, the client does not indicate any symptoms associated with coronavirus-19. Ebola Screen: No symptoms or risks identified at this time. Initial Sepsis Screen: Does the patient meet any 2 criteria? No. Patient's initial sepsis screen is negative. Does the patient have a suspected source of infection? No. Patient's initial sepsis screen is negative. Risk Assessment: Do you want to hurt yourself or someone else? Patient reports no desire to harm self or others. Onset of symptoms was August 06, 2022. 12:51 Method Of Arrival: Ambulatory ld1 12:51 Acuity: NAOMI 4 ld1 Triage Assessment: 12:52 General: Appears in no apparent distress. comfortable, Behavior is calm, cooperative, ld1 appropriate for age. Pain: Complains of pain in face, right arm and right sternocleidomastoid Pain does not radiate. Pain currently is 9 out of 10 on a pain scale. Quality of pain is described as throbbing. EENT: No signs and/or symptoms were reported regarding the EENT system. Neuro: Level of Consciousness is awake, alert, obeys commands, Oriented to person, place, time, situation, Appropriate for age. Cardiovascular: Capillary refill < 3 seconds Patient's skin is warm and dry. Respiratory: Airway is patent Respiratory effort is even, unlabored. GI: Abdomen is flat, non-distended. : No signs and/or symptoms were reported regarding the genitourinary system. Derm: No signs and/or symptoms reported regarding the dermatologic system. Musculoskeletal: No signs and/or symptoms reported regarding the musculoskeletal system. Historical: - Allergies: 12:52 No Known Allergies; ld1 - PMHx: 12:52 Anxiety; ADD/ADHD; ld1 - PSHx: 12:52 None; ld1 - Immunization history:: Adult Immunizations up to date, Client reports receiving the 2nd dose of the Covid vaccine. - Social history:: Smoking status: Patient denies any tobacco usage or history of. Patient/guardian denies using alcohol. Vital Signs: 12:51 BP 146 / 96; Pulse 80; Resp 18; Temp 98.0(O); Pulse Ox 98% on R/A; Weight 91.63 kg; ld1 Height 5 ft. 10 in. (177.80 cm); Pain 8/10; 12:51 Body Mass Index 28.98 (91.63 kg, 177.80 cm) ld1 ED Course: 12:38 Patient arrived in ED. as 12:52 Triage completed. ld1 12:52 Arm band placed on right wrist. ld1 13:04 Cliff Robert MD is Attending Physician. andressa 13:22 CT C Spine In Process Unspecified. EDMS Administered Medications: No medications were administered Outcome: 16:15 Eloped from waiting room, Time discovered patient gone: August 06, 2022 at 16:15 ld1 16:15 Patient left the ED. ld1 Signatures: Dispatcher [employer] EDMS Cliff Robert MD MD cha Martinez, Amelia as Dibbern, Lauren, RN RN ld1
[2022-08-06 16:22] VITALS: BP 146/96; TEMP 98; O2SAT 98
== END 2022-08-06 16:15 | disposition left against medical advice (07) ==
LOC: ER 12:36
DX: Z53.21 Procedure and treatment not carried out due to patient leaving prior to being seen by health care provider (principal)
CPT/HCPCS: 72125; 99282